=== PATIENT | female | born 1980 | race Two or more races ===

== ENCOUNTER 2018-04-05 18:02 | Emergency (ER) | payer SELFPAY ==
--- NOTE | 2018-04-05 18:41 | ER Document Report ---
ED Medical Screen (RME) - General Stated Complaint: ABDOMINAL PAIN Time Seen by Provider: 04/05/18 18:33 Notes: 38-year-old female who speaks some Israeli. 2-month history of right lower quadrant dull aching, is become sharp now for 3-4 days. Pain comes and goes. There is an occasional small amount of clear vaginal discharge. There is no bleeding. She has missed at least one and possibly 2 periods. I have greeted and performed a rapid initial assessment of this patient. A comprehensive ED assessment and evaluation of the patient, analysis of test results and completion of the medical decision making process will be conducted by additional ED providers. TRAVEL OUTSIDE OF THE [place] IN LAST 30 DAYS: No - Related Data Allergies/Adverse Reactions: No Known Allergies Allergy (Unverified 04/05/18 18:04) Past Medical History - Social History Chew tobacco use (# tins/day): No Frequency of alcohol use: None Drug Abuse: None Renal/ Medical History: Denies: Hx Peritoneal Dialysis Physical Exam - Vital signs Vitals: Temp Pulse Resp BP Pulse Ox 98.5 F 88 16 136/90 H 99 04/05/18 18:15 04/05/18 18:15 04/05/18 18:15 04/05/18 18:15 04/05/18 18:15 Course - Vital Signs Vital signs: Temp Pulse Resp BP Pulse Ox 98.5 F 88 16 136/90 H 99 04/05/18 18:15 04/05/18 18:15 04/05/18 18:15 04/05/18 18:15 04/05/18 18:15
[2018-04-05 19:34] LABS: ABSOLUTE BASOPHILS # (AUTO) 0.1 10^3/uL (0.0-0.2); ABSOLUTE EOSINOPHILS # (AUTO) 0.4 10^3/uL (0.0-0.6); ABSOLUTE LYMPHOCYTES (AUTO) 3.7 10^3/uL (0.5-4.7); ABSOLUTE MONOCYTES (AUTO) 0.6 10^3/uL (0.1-1.4); ABSOLUTE NEUT (AUTO) 4.3 10^3/uL (1.7-8.2); BASOPHILS % (AUTO) 0.6 % (0-2); EOSINOPHILS % (AUTO) 4.6 % (0-6); HEMATOCRIT 37.7 % (36.0-47.0); HEMOGLOBIN 13.2 g/dL (12.0-15.5); LYMPHOCYTES % (AUTO) 40.8 % (13-45); MEAN CORPUSCULAR HGB CONC 35.1 g/dL (32.0-36.0); MEAN CORPUSCULAR VOLUME 85 fl (80-97); PLATELET COUNT 348 10^3/uL (150-450); RED BLOOD COUNT 4.41 10^6/uL (3.72-5.28); RED CELL DISTRIBUTION WIDTH 13.8 % (11.5-14.0); TOTAL CELLS COUNTED % (AUTO) 100 %; WHITE BLOOD COUNT 9.1 10^3/uL (4.0-10.5)
[2018-04-05 19:52] LABS: APPEARANCE,URINE SLIGHTLY-CLOUDY; BILIRUBIN,URINE NEGATIVE (NEGATIVE); COLOR,URINE YELLOW; GLUCOSE, URINE NEGATIVE (NEGATIVE); KETONES,URINE NEGATIVE (NEGATIVE); LEUKOCYTE ESTERASE,URINE MODERATE (NEGATIVE); NITRITE,URINE NEGATIVE (NEGATIVE); PROTEIN,URINE NEGATIVE (NEGATIVE); URINE SPECIFIC GRAVITY 1.019
[2018-04-05 19:56] LABS: ALANINE AMINOTRANSFERASE 29 U/L (9-52); ALBUMIN 4.2 g/dL (3.5-5.0); ALKALINE PHOSPHATASE 90 U/L (38-126); ANION GAP 7 (5-19); ASPARTATE AMINO TRANSFERASE 22 U/L (14-36); BILIRUBIN,DIRECT 0.3 mg/dL (0.0-0.4); BILIRUBIN,TOTAL 0.3 mg/dL (0.2-1.3); BLOOD UREA NITROGEN 11 mg/dL (7-20); CALCIUM 9.5 mg/dL (8.4-10.2); CARBON DIOXIDE 28 mmol/L (22-30); CHLORIDE 105 mmol/L (98-107); GLUCOSE 93 mg/dL (75-110); POTASSIUM 4.4 mmol/L (3.6-5.0); SODIUM 140.2 mmol/L (137-145); TOTAL PROTEIN 7.5 g/dL (6.3-8.2)
--- NOTE | 2018-04-05 20:46 | RADIOLOGY REPORT (SQ) ---
EXAM DESCRIPTION: U/S NON-OB PELVIS W/O DOP COMPLETED DATE/TIME: 04/05/2018 8:26 pm REASON FOR STUDY: Right pelvic pain,possibly COMPARISON: None. TECHNIQUE: Dynamic and static grayscale images acquired of the pelvis via transabdominal approach an d recorded on PACS. Additional selected color Doppler and spectral images recorded. LIMITATIONS: None. FINDINGS: UTERUS: Contour normal. No mass. ENDOMETRIAL STRIPE: No focal or generalized thickening. No masses. CERVIX: Poorly seen. RIGHT OVARY AND DOPPLER: Normal size. No worrisome masses. Normal arterial vascular flow without evid ence for torsion. 2.6 x 2.8 x 2.4 cm cyst. LEFT OVARY AND DOPPLER: Normal size. No worrisome masses. Normal arterial vascular flow without evide nce for torsion. FREE FLUID: None noted. OTHER: No other significant finding. MEASUREMENTS: UTERUS: 8.8 x 4.5 x 4.4 cm. ENDOMETRIAL STRIPE: 4 mm. RIGHT OVARY: 4.5 x 3.7 x 3.1 cm. LEFT OVARY: 2.4 x 2.2 x 1.6 cm. IMPRESSION: NORMAL PELVIC ULTRASOUND BY TRANSABDOMINAL TECHNIQUE. TECHNICAL DOCUMENTATION: JOB ID: [id number] [employer]- All Rights Reserved Rev Reading location - IP/workstation name: [email or web address]
[2018-04-05] MEDS ORDERED: KETOROLAC TROMETHAMINE 60 MG/2 ML SDV IM ONE (21:16)
--- NOTE | 2018-04-05 21:20 | ER Document Report ---
ED GI/ - General Chief Complaint: Abdominal Pain Stated Complaint: ABDOMINAL PAIN Time Seen by Provider: 04/05/18 18:33 Mode of Arrival: Ambulatory Information source: Patient Notes: Patient is a 38-year-old female comes to emergency room complaining of right lower pelvic pain. She states that it started approximately 4 days ago she ran a low-grade fever. She denies any nausea vomiting or diarrhea. She denies any dysuria. She denies any other medical problems. She states she was sent here by a friend because she thought she might be be having a ectopic . Patient currently is not employed and she does not smoke. TRAVEL OUTSIDE OF THE [place] IN LAST 30 DAYS: No - HPI Patient complains to provider of: Abdominal pain, Pelvic pain Onset: Other - 4 days Timing/Duration: Gradual, Persistent Quality of pain: Achy Severity at maximum: Moderate Severity in ED: Moderate Pain Level: 3 Context: denies: Bad food, Lifting, Out of the country travel, Recent trauma Location: RLQ, Pelvis Adult Front & Back Diagram: 1 - Area of discomfort and pain is more lateral and it is definitely not near the umbilicus. Vaginal bleeding (Compared to normal period): None Menstrual period history: denies: Abnormal, Missed LMP: A month ago Sexual history: Active Associated symptoms: None. denies: Vaginal discharge Exacerbated by: Denies Relieved by: Denies Similar symptoms previously: No Recently seen / treated by doctor: No - Related Data Allergies/Adverse Reactions: No Known Allergies Allergy (Unverified 04/05/18 18:04) Past Medical History - General Information source: Patient - Social History Smoking Status: Never Smoker Cigarette use (# per day): No Chew tobacco use (# tins/day): No Smoking Education Provided: No Frequency of alcohol use: None Drug Abuse: None Occupation: Currently not employed Lives with: Family Family History: Reviewed & Not Pertinent Patient has suicidal ideation: No Patient has homicidal ideation: No Renal/ Medical History: Denies: Hx Peritoneal Dialysis Review of Systems - Review of Systems Constitutional: No symptoms reported EENT: No symptoms reported Cardiovascular: No symptoms reported Respiratory: No symptoms reported Gastrointestinal: Abdominal pain Genitourinary: No symptoms reported Female Genitourinary: See HPI. denies: Painful intercourse Musculoskeletal: No symptoms reported Skin: No symptoms reported Hematologic/Lymphatic: No symptoms reported Neurological/Psychological: No symptoms reported -: Yes All other systems reviewed and negative Physical Exam - Vital signs Vitals: Temp Pulse Resp BP Pulse Ox 98.5 F 88 16 136/90 H 99 04/05/18 18:15 04/05/18 18:15 04/05/18 18:15 04/05/18 18:15 04/05/18 18:15 Interpretation: Hypertensive - Notes Notes: Patient is a well-nourished well-developed female no apparent distress. She actually looks comfortable. - General General appearance: Alert - HEENT Head: Normocephalic, Atraumatic Eyes: Normal Mouth/Lips: Normal. No: Caries, Dental fracture Mucous membranes: Normal, Moist Pharynx: Normal. No: Blood in hypopharynx, Erythema, Exudate, Peritonsillar abscess, Post nasal drainage, Retropharyngeal abscess, Tonsillar hypertrophy, Uvular edema, Potential airway comprom. Neck: Normal, Supple. No: Anterior cervical chain, Posterior cervical chain, Brudzinski, Carotid bruit, Kernig's, Lymphadenopathy, Meningismus, Neck mass, Shotty nodes, Subcutaneous emphysema, Thyroid nodule - Respiratory Respiratory status: No respiratory distress Chest status: Nontender Breath sounds: Normal. No: Rales, Rhonchi, Stridor, Wheezing Chest palpation: Normal - Cardiovascular Rhythm: Regular Heart sounds: Normal auscultation Murmur: No Pulses: Bounding: Brachial, Femoral - Abdominal Inspection: Normal Distension: No distension Bowel sounds: Normal Tenderness: Nontender, Other - Physical examination of patient's abdomen as well as her pelvic area shows that she has nonspecific tenderness. She is more tender on the right lateral side than she is right lower quadrant. Does not appear to be a presentation of appendicitis and ultrasound shows normal adnexa so I doubt seriously there is any potential for like a ovarian cyst. At this time is more lateral and inferior so is more in the groin areas of really believe this to be muscle that is affecting her movement.. No: McBurney's point , Romero's sign, Guarding, Rebound Organomegaly: No organomegaly - Back Back: Normal, Nontender. No: Tender, Deformity/step-off, CVA tenderness, Vertebra tenderness, Scoliosis, Wounds - Extremities General upper extremity: Normal inspection, Nontender, Normal ROM, Normal strength General lower extremity: Tender, Normal strength, Normal weight bearing, Other - Examination of patient's right groin area shows that she is more superior to the groin but inferior to the abdominal area. It is more like a hip flexor type presentation that she is pulled.. No: Normal inspection, Normal ROM, Valentine 's sign - Neurological Neuro grossly intact: Yes Cognition: Normal Orientation: AAOx4 [place] Coma Scale Eye Opening: Spontaneous [place] Coma Scale Verbal: Oriented [place] Coma Scale Motor: Obeys Commands [place] Coma Scale Total: 15 Speech: Normal - Skin Skin Temperature: Warm Skin Moisture: Dry Skin Color: Normal, [place] Course - Re-evaluation Re-evalutation: 04/06/18 01:55 Patient spoke relatively good Mexican we were able to communicate without a problem. Physical exam was really unremarkable for any kind of acute findings. Her pain seem to be stemming from her right lower abdominal area but more superior to the groin. It appears to be that it may be a muscle pull more than anything else. At this time we are having the patient go home and of asked her to return to ER and ask for me if there are any concerns or problems that way we know which direction to go in if the if she were to come back. Currently as stated there is no concerned that this is an appendix kind of a presentation patient's labs look good her ultrasound was done and it was negative. - Vital Signs Vital signs: Temp Pulse Resp BP Pulse Ox 97.9 F 88 14 127/90 H 98 04/05/18 21:32 04/05/18 21:32 04/05/18 21:32 04/05/18 21:32 04/05/18 21:32 - Laboratory Result Diagrams: 04/05/18 19:15 04/05/18 19:15 Laboratory results interpreted by me: 04/05/18 19:15 Urine Urobilinogen 2.0 H Ur Leukocyte Esterase MODERATE H Discharge - Discharge Clinical Impression: Pelvic pain Condition: Stable Disposition: HOME, SELF-CARE Instructions: Abdominal Pain ([facility]), Pelvic Pain ([facility]) Additional Instructions: Home and rest. As we discussed the ultrasound was negative your labs were normal and your urine is clean. At this point there is nothing really to treat with the exception of muscle type of pain. Since you have had no elevation in your white count and everything else is normal where he would like to go home. 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 It does not appear to be anything life-threatening however if you should spike a fever if you should have uncontrolled vomiting or the pain is unrelenting return to ER for recheck. Prescriptions: Hyoscyamine Sulfate [Levsin 0.125 Tablet] 0.125 mg PO QID #20 tablet Forms: Elevated Blood Pressure
[2018-04-05 21:35] VITALS: BP 127/90
== END 2018-04-05 21:42 | disposition home or self-care (01) ==
LOC: ER 18:02
DX: R10.2 Pelvic and perineal pain (principal); R10.31 Right lower quadrant pain
CPT/HCPCS: 99284; 36415; 84702; 85025; 80053; 81001; 76856; J1885

== ENCOUNTER → 2018-06-11 | Outpatient (CLI) | payer SELFPAY ==
--- NOTE | 2018-06-11 16:20 | RADIOLOGY REPORT (SQ) ---
EXAM DESCRIPTION: U/S [id number] TRNABD 1GES W/ODOP COMPLETED DATE/TIME: 06/11/2018 4:04 pm REASON FOR STUDY: ENCOUNTER FOR SUPERVISION OF OTHER NORMAL , FIRST TRIMESTER Z34.81 ENCOU NTER FOR SUPRVSN OF NORMAL , FIRST TRIM COMPARISON: None. TECHNIQUE: Transabdominal static and realtime grayscale images acquired of the pelvis. Additional se lected spectral and color Doppler images recorded. All images stored on PACs. bHCG: Not available. CLINICAL DATES: 9 weeks 1 day LIMITATIONS: None. FINDINGS: FETUS: Single Living intrauterine . ULTRASOUND EGA: 9 weeks 0 days ULTRASOUND FARZAD: 01/14/2019 EFW: Not applicable less than 20 weeks. CRL: 2.3 cm FHR: 180 beats per minute. SURVEY: No visualized anomalies. AMNIOTIC FLUID: Adequate amount. PLACENTA: Not yet developed due to early gestation. SUBCHORIONIC BLEED: No SIZE OF BLEED: Not applicable. UTERUS: No masses. No anomalies. CERVICAL LENGTH: 2.9 cm Closed. RIGHT ADNEXA: Normal ovary with normal vascular flow. No adnexal free fluid. No adnexal masses. LEFT ADNEXA: Normal ovary with normal vascular flow. No adnexal free fluid. No adnexal masses. FREE FLUID: None. OTHER: No other significant finding. IMPRESSION: LIVING INTRAUTERINE . EGA 9 weeks 0 days Trimester of : First - 0 to 13 weeks. TECHNICAL DOCUMENTATION: JOB ID: [id number] [employer]- All Rights Reserved rev Reading location - IP/workstation name: [email or web address]
== END ==
LOC: RAD 15:03
PROVIDERS: ATTEND Nurse Practitioner
DX: Z34.81 Encounter for supervision of other normal pregnancy, first trimester (principal)
CPT/HCPCS: 76801

== ENCOUNTER 2018-07-09 11:09 | Emergency (ER) | payer SELFPAY ==
--- NOTE | 2018-07-09 13:33 | ER Document Report ---
ED Respiratory Problem - General Chief Complaint: Cold Symptoms Stated Complaint: FEVER, HEADACHE, WEAKNESS Time Seen by Provider: 07/09/18 13:09 Mode of Arrival: Ambulatory Information source: Patient Notes: 38-year-old female presents to ED for complaint of cough cold congestion runny nose and fever. She is with estimated due date of 01/14/2019. She is complaining of right pelvic pain no bleeding. She is alert oriented respirations regular and unlabored speaking in full sentences. She states she has been to the doctor on 19 June last. She has a cough and cold at this t andrew. TRAVEL OUTSIDE OF THE [place] IN LAST 30 DAYS: No - HPI Patient complains to provider of: Cough Onset: Other Duration: Continuous Initiating Event: URI - [id number] Quality of pain: Achy Cough: Nonproductive Associated symptoms: Congestion, Cough, PND, Runny nose, Sinus pain/pressure, Short of breath, Other - Patient states she is also and has some discomfort at times when she is coughing. She states she has been to see her NEWSPAPER WRITER and has had an ultrasound.. denies: Fever Similar symptoms previously: Yes Recently seen / treated by doctor: No - Related Data Allergies/Adverse Reactions: No Known Allergies Allergy (Verified 07/09/18 11:21) Past Medical History - General Information source: Patient - Social History Smoking Status: Never Smoker Frequency of alcohol use: Rare Drug Abuse: None Lives with: Family Family History: Reviewed & Not Pertinent Patient has suicidal ideation: No Patient has homicidal ideation: No - Past Medical History Cardiac Medical History: Reports: None Pulmonary Medical History: Reports: None EENT Medical History: Reports: None Neurological Medical History: Reports: None Endocrine Medical History: Reports: None Renal/ Medical History: Reports: None Malignancy Medical History: Reports: None GI Medical History: Reports: None Musculoskeletal Medical History: Reports None Skin Medical History: Reports None Psychiatric Medical History: Reports: None Traumatic Medical History: Reports: None Infectious Medical History: Reports: None Surgical Hx: Negative Past Surgical History: Reports: None - Immunizations Immunizations up to date: Yes Review of Systems - Review of Systems Constitutional: No symptoms reported EENT: Nose discharge, Sinus pressure, Sinus discharge, Throat pain Cardiovascular: No symptoms reported Respiratory: Cough Gastrointestinal: No symptoms reported Genitourinary: No symptoms reported Female Genitourinary: Musculoskeletal: No symptoms reported Skin: No symptoms reported Hematologic/Lymphatic: No symptoms reported Neurological/Psychological: No symptoms reported -: Yes All other systems reviewed and negative Physical Exam - Vital signs Vitals: Temp Pulse Resp BP Pulse Ox 98.4 F 98 18 126/84 H 98 07/09/18 11:26 07/09/18 11:26 07/09/18 11:26 07/09/18 11:26 07/09/18 11:26 Interpretation: Normal - General General appearance: Appears well, Alert - HEENT Head: Normocephalic, Atraumatic Eyes: Normal Pupils: PERRL Ears: Normal External canal: Normal Tympanic membrane: Normal Sinus: Normal Nasal: Purulent discharge, Swelling Mouth/Lips: Normal Mucous membranes: Normal Pharynx: Post nasal drainage Neck: Normal - Respiratory Respiratory status: No respiratory distress Chest status: Nontender Breath sounds: Normal Chest palpation: Normal - Cardiovascular Rhythm: Regular Heart sounds: Normal auscultation Murmur: No - Abdominal Inspection: Gravid female Distension: No distension Bowel sounds: Normal Tenderness: Nontender Organomegaly: No organomegaly - Back Back: Normal, Nontender - Extremities General upper extremity: Normal inspection, Nontender, Normal color, Normal ROM, Normal temperature General lower extremity: Normal inspection, Nontender, Normal color, Normal ROM, Normal temperature, Normal weight bearing. No: Valentine's sign - Neurological Neuro grossly intact: Yes Cognition: Normal Orientation: AAOx4 [place] Coma Scale Eye Opening: Spontaneous [place] Coma Scale Verbal: Oriented [place] Coma Scale Motor: Obeys Commands [place] Coma Scale Total: 15 Speech: Normal Motor strength normal: LUE, RUE, LLE, RLE Sensory: Normal - Psychological Associated symptoms: Normal affect, Normal mood - Skin Skin Temperature: Warm Skin Moisture: Dry Skin Color: Normal Course - Vital Signs Vital signs: Temp Pulse Resp BP Pulse Ox 98.3 F 101 H 20 124/78 96 07/09/18 14:50 07/09/18 14:50 07/09/18 14:50 07/09/18 14:50 07/09/18 14:50 Discharge - Discharge Clinical Impression: URI (upper respiratory infection) Qualifiers: URI type: unspecified URI Qualified Code(s): J06.9 - Acute upper respiratory infection, unspecified Condition: Good Disposition: HOME, SELF-CARE Instructions: [facility] [place] Additional Instructions: UPPER RESPIRATORY ILLNESS: You have a viral infection of the respiratory passages -- a "cold." This common infection causes nasal congestion, drainage, and often sore throat and cough. It is highly contagious. The disease usually lasts about 10 to 14 days. There is no "cure" for the viral infection -- it must run its course. If there is a complication, such as bacterial infection in the nose, sinuses, middle ear, or bronchial tubes, antibiotics may be required. The antibiotics won't affect the virus. Drink plenty of fluids. A humidifier may help. An expectorant medication or decongestant may make you more comfortable. Use acetaminophen or ibuprofen for fever or aches. See the doctor if fever persists over two days, if there is any significant worsening of your symptoms, or if you simply fail to improve as expected. COUGH-SUPPRESSANT & EXPECTORANT MEDICATION: You are to use a cough medication as needed for relief of symptoms. This medicine is a combination of an expectorant (to make the mucous thinner and more easily "coughed up") and a cough suppressant (to reduce the frequency of coughing). The cough-suppressant medicine is related to narcotics. You may experience mild nausea and sleepiness. Some patients who are very sensitive to narcotics may have stomach pain from this medicine. Taking the medicine with food reduces these side effects. Do not drive or work with machinery until you know how this medicine affects you. The expectorant should have no side effects. Iodine-containing expectorants (such as organidin) should not be taken by persons with active thyroid disease unless approved by your doctor. Call the doctor if you develop shortness of breath, hives, rash, itching, lightheadedness, or severe nausea and vomiting. USE OF ACETAMINOPHEN (Tylenol): Acetaminophen may be taken for pain relief or fever control. It's much safer than aspirin, offering a wider range of "safe" dosages. It is safe during . Some brand names are Tylenol, Panadol, Datril, Anacin 3, Tempra, and Liquiprin. Acetaminophen can be repeated every four hours. The following are maximum recommended dosages: >89 pounds or adults 650 mg to 900 mg Acetaminophen can be repeated every four hours. Maximum dose not to exceed 4000 mg a day. You can use Claritin or Benadryl for your cough cold and congestion while you are . The other, [id number] medications you cannot take while . Please use salt and soda solution gargles to help with the cough as most your cough is from the postnasal drip. Follow-up with your primary care doctor and your NEWSPAPER WRITER for your cough cold and congestion. You will need to follow-up with your primary doctor and orthopedics after you have delivered for this pain that you have had in your knee for 2 months. This is not an acute injury and I do not want to x-ray a woman when she is and it is not an acute injury. FOLLOW-UP CARE: If you have been referred to a physician for follow-up care, call the physicians office for an appointment as you were instructed or within the next two days. If you experience worsening or a significant change in your symptoms, notify the physician immediately or return to the Emergency Department at any time for re-evaluation. Referrals: ARIELA KRAMER, [place] [NO LOCAL MD] - Follow up as needed [facility] [Provider Group] - Follow up as needed [facility] [Provider Group] - Follow up as needed
[2018-07-09 13:41] LABS: A TYPE INFLUENZA AG NEGATIVE (NEGATIVE); B INFLUENZA AG NEGATIVE (NEGATIVE)
[2018-07-09] MEDS ORDERED: LORATADINE 10 MG TABLET PO ONE (14:29)
[2018-07-09] MEDS ORDERED: ACETAMINOPHEN 325 MG TABLET PO ONE (14:32)
[2018-07-09 14:56] VITALS: BP 124/78
== END 2018-07-09 14:50 | disposition home or self-care (01) ==
LOC: ER 11:09
DX: O99.519 Diseases of the respiratory system complicating pregnancy, unspecified trimester (principal); J06.9 Acute upper respiratory infection, unspecified; J34.89 Other specified disorders of nose and nasal sinuses; O26.899 Other specified pregnancy related conditions, unspecified trimester; R05 Cough; R09.89 Other specified symptoms and signs involving the circulatory and respiratory systems; R50.9 Fever, unspecified; R10.2 Pelvic and perineal pain; R09.82 Postnasal drip; R06.02 Shortness of breath; Z3A.00 Weeks of gestation of pregnancy not specified
CPT/HCPCS: 87804; 99283

== ENCOUNTER 2018-12-05 12:40 | Outpatient (CLI) | payer SELFPAY ==
--- NOTE | 2018-12-05 13:47 | Non Stress Test Report ---
Non Stress Test Datetime Report Generated by CPN: 12/05/2018 13:47 DEMOGRAPHIC EGA NST: 34.3 INDICATION Indication for Study: Ordered by Provider VITAL SIGNS Temperature - NST: 98.7 RESP - NST: 12 NBPSYS NST: 115 NBPDIA NST: 73 MONITORING Monitor Explained: Monitor Explained; Test Explained Time on Monitor: 12/05/2018 13:15 Time off Monitor: 12/05/2018 13:38 NST Duration: 23 NST INTERVENTIONS NST Interventions: PO Hydration Physician Notified NST: C. Kiser CNM BABY A: [id number] BABY A Movement : Present Contraction Frequency : x2 FHR Baseline : 150 Accelerations : 15X15 Decelerations : None Variability : Moderate 6-25bpm NST Review: Meets Criteria for Reactive NST NST Review and Verified By : Debby Galindo RN NST Results: Reactive NST REPORT Report Trigger: Send Report
--- NOTE | 2018-12-05 16:06 | RADIOLOGY REPORT (SQ) ---
EXAM DESCRIPTION: U/S OB LIMITED COMPLETED DATE/TIME: 12/05/2018 3:11 pm REASON FOR STUDY: AMA needs AMBROSE only COMPARISON: 08/27/2018 TECHNIQUE: Limited transabdominal grayscale ultrasound for evaluation of specific requested obstetri meño parameters. LIMITATIONS: None. FINDINGS: CERVICAL LENGTH: 3.1 cm. Closed. AMBROSE: 15.7 cm. FHR: 162 beats per minute. PRESENTATION: Cephalic. PLACENTA: Posterior. ANATOMY: Not assessed OTHER: Gestation of 36 weeks 6 days by ultrasound. IMPRESSION: LIMITED OBSTETRICAL ULTRASOUND WITH MEASURED PARAMETERS DELINEATED ABOVE. Trimester of : Third trimester - 28 weeks to delivery. TECHNICAL DOCUMENTATION: JOB ID: [id number] [employer]- All Rights Reserved Reading location - IP/workstation name: [email or web address]
== END 2018-12-05 15:01 | disposition home or self-care (01) ==
LOC: LC 12:40
PROVIDERS: ATTEND Obstetrics & Gynecology
PROC: 4A1HXCZ Monitoring of Products of Conception, Cardiac Rate, External Approach (ICD-10-PCS; principal; 2018-12-05)
DX: Z34.83 Encounter for supervision of other normal pregnancy, third trimester (principal); Z3A.34 34 weeks gestation of pregnancy
CPT/HCPCS: 59025; 76815; 94760

== ENCOUNTER 2018-12-07 11:08 | Outpatient (CLI) | payer SELFPAY ==
--- NOTE | 2018-12-07 12:17 | Non Stress Test Report ---
Non Stress Test Datetime Report Generated by CPN: 12/07/2018 11:58 DEMOGRAPHIC EGA NST: 34.5 INDICATION Indication for Study: Other Indication for Study (NST) Other: pt sent from health dept for testing, advanced maternal age MONITORING Monitor Explained: Monitor Explained; Test Explained; Patient Verbalized Understanding Time on Monitor: 12/07/2018 11:16 Time off Monitor: 12/07/2018 11:51 NST Duration: 35 NST INTERVENTIONS NST Interventions: PO Hydration; Reposition Patient Physician Notified NST: Dr Álvaro BABY A: [id number] BABY A Movement : Present Contraction Frequency : occasional FHR Baseline : 160 Accelerations : 15X15 Decelerations : None Variability : Moderate 6-25bpm NST Review: Meets Criteria for Reactive NST NST Review and Verified By : Debby Galindo RN NST Results: Reactive NST REPORT Report Trigger: Send Report
== END 2018-12-07 11:53 | disposition home or self-care (01) ==
LOC: LC 11:08
PROVIDERS: ATTEND Obstetrics & Gynecology
PROC: 4A1HXCZ Monitoring of Products of Conception, Cardiac Rate, External Approach (ICD-10-PCS; principal; 2018-12-07)
DX: O09.523 Supervision of elderly multigravida, third trimester (principal); Z3A.34 34 weeks gestation of pregnancy
CPT/HCPCS: 59025

== ENCOUNTER 2018-12-11 13:32 | Outpatient (CLI) | payer SELFPAY ==
--- NOTE | 2018-12-11 14:37 | Non Stress Test Report ---
Non Stress Test Datetime Report Generated by CPN: 12/11/2018 14:37 DEMOGRAPHIC EGA NST: 35.2 INDICATION Indication for Study: Ordered by Provider Indication for Study (NST) Other: AMA VITAL SIGNS Temperature - NST: 97.8 Pulse - NST: 106 RESP - NST: 18 NBPSYS NST: 104 NBPDIA NST: 58 MONITORING Monitor Explained: Monitor Explained; Test Explained; Patient Verbalized Understanding Time on Monitor: 12/11/2018 13:44 Time off Monitor: 12/11/2018 14:29 NST Duration: 45 NST INTERVENTIONS NST Interventions: PO Hydration; Reposition Patient Physician Notified NST: K GANDARA, CNM REVIEWED STRIP BABY A Movement : Present Contraction Frequency : NONE FHR Baseline : 160 Accelerations : 15X15 Decelerations : None Variability : Moderate 6-25bpm NST Review: Meets Criteria for Reactive NST NST Review and Verified By : AMBER Pack NST Results: Reactive NST REPORT Report Trigger: Send Report
== END 2018-12-11 14:49 | disposition home or self-care (01) ==
LOC: LC 13:32
PROVIDERS: ATTEND Student in an Organized Health Care Education/Training Program
PROC: 4A1HXCZ Monitoring of Products of Conception, Cardiac Rate, External Approach (ICD-10-PCS; principal; 2018-12-11)
DX: O09.523 Supervision of elderly multigravida, third trimester (principal); Z3A.35 35 weeks gestation of pregnancy
CPT/HCPCS: 59025

== ENCOUNTER 2018-12-14 15:22 | Outpatient (CLI) | payer SELFPAY ==
--- NOTE | 2018-12-14 17:11 | Non Stress Test Report ---
Non Stress Test Datetime Report Generated by CPN: 12/14/2018 17:10 DEMOGRAPHIC EGA NST: 35.5 INDICATION Indication for Study: Other Indication for Study (NST) Other: AMA VITAL SIGNS Temperature - NST: 98.0 Pulse - NST: 101 RESP - NST: 16 NBPSYS NST: 111 NBPDIA NST: 59 MONITORING Monitor Explained: Monitor Explained; Test Explained; Patient Verbalized Understanding; Other Time on Monitor: 12/14/2018 15:31 Time off Monitor: 12/14/2018 16:24 NST Duration: 53 NST INTERVENTIONS NST Interventions: PO Hydration Physician Notified NST: A. Heard, CNM BABY A: [id number] BABY A Movement : Present Contraction Frequency : 1-3 FHR Baseline : 150 Accelerations : 15X15 Decelerations : None Variability : Moderate 6-25bpm NST Review: Meets Criteria for Reactive NST NST Review and Verified By : AMBER PackT Results: Reactive NST REPORT Report Trigger: Send Report
--- NOTE | 2018-12-14 17:11 | RADIOLOGY REPORT (SQ) ---
EXAM DESCRIPTION: U/S OB LIMITED COMPLETED DATE/TIME: 12/14/2018 5:00 pm REASON FOR STUDY: AMBROSE COMPARISON: 12/05/2018 TECHNIQUE: Limited transabdominal grayscale ultrasound for evaluation of specific requested obstetri meño parameters. LIMITATIONS: None. FINDINGS: CERVICAL LENGTH: Cervical length was not obtained due to baby positioning/shadowing. AMBROSE: 22.2 cm cm. FHR: 160 beats per minute. PRESENTATION: Cephalic. PLACENTA: Posterior placenta. ANATOMY: Not assessed OTHER: Estimated gestational: 37 weeks 6 days. IMPRESSION: LIMITED OBSTETRICAL ULTRASOUND WITH MEASURED PARAMETERS DELINEATED ABOVE. Trimester of : Third trimester - 28 weeks to delivery. TECHNICAL DOCUMENTATION: JOB ID: [id number] [employer]- All Rights Reserved Reading location - IP/workstation name: [email or web address]
== END 2018-12-14 17:00 | disposition home or self-care (01) ==
LOC: LC 15:22
PROVIDERS: ATTEND Student in an Organized Health Care Education/Training Program
PROC: 4A1HXCZ Monitoring of Products of Conception, Cardiac Rate, External Approach (ICD-10-PCS; principal; 2018-12-14)
DX: O09.523 Supervision of elderly multigravida, third trimester (principal); Z3A.35 35 weeks gestation of pregnancy
CPT/HCPCS: 59025; 76815

== ENCOUNTER → 2018-12-17 | Outpatient (CLI) | payer SELFPAY ==
--- NOTE | 2018-12-17 16:43 | RADIOLOGY REPORT (SQ) ---
EXAM DESCRIPTION: U/S OB 14+ TRNABD 1GES W/O DOP COMPLETED DATE/TIME: 12/17/2018 2:39 pm REASON FOR STUDY: Z34.83 ENCOUNTER FOR SUPRVSN OF NORMAL , THIRD TRIMESTER Z34.83 ENCOUNTE R FOR SUPRVSN OF NORMAL , THIRD TRIM COMPARISON: 12/14/2018 TECHNIQUE: Limited transabdominal grayscale ultrasound for evaluation of specific requested obstetri meño parameters. LIMITATIONS: None. FINDINGS: CERVICAL LENGTH: 3.8 cm Closed. AMBROSE: 17.1 cm. FHR: 175 beats per minute. PRESENTATION: Cephalic. PLACENTA: Posterior. ANATOMY: Not assessed OTHER: Estimated body weight is 3546 +/- 525 g, 92nd percentile. 38 weeks 4 days gestational a ge. IMPRESSION: LIMITED OBSTETRICAL ULTRASOUND WITH MEASURED PARAMETERS DELINEATED ABOVE. Trimester of : Third trimester - 28 weeks to delivery. TECHNICAL DOCUMENTATION: JOB ID: [id number] [employer]- All Rights Reserved Reading location - IP/workstation name: [email or web address]
== END ==
LOC: RAD 12:44
PROVIDERS: ATTEND Midwife
DX: Z34.83 Encounter for supervision of other normal pregnancy, third trimester (principal)
CPT/HCPCS: 76805

== ENCOUNTER 2018-12-21 13:45 | Outpatient (CLI) | payer SELFPAY ==
--- NOTE | 2018-12-21 14:30 | Non Stress Test Report ---
Non Stress Test Datetime Report Generated by CPN: 12/21/2018 14:30 DEMOGRAPHIC EGA NST: 36.5 EGA NST: 35.5 INDICATION Indication for Study: Ordered by Provider Indication for Study (NST) Other: biweekly nst MONITORING Monitor Explained: Monitor Explained; Test Explained; Patient Verbalized Understanding Monitor Explained: Monitor Explained; Test Explained; Patient Verbalized Understanding Time on Monitor: 12/21/2018 13:55 Time on Monitor: 12/14/2018 13:58 Time off Monitor: 12/21/2018 14:17 NST Duration: 83270 NST INTERVENTIONS NST Interventions: PO Hydration NST Interventions: Reposition Patient Physician Notified NST: N Miguel CNM BABY A: [id number] BABY A Movement : Present Contraction Frequency : irregular FHR Baseline : 150 Accelerations : 10X10 Variability : Moderate 6-25bpm NST Review: Meets Criteria for Reactive NST NST Review and Verified By : Anitra Meza [facility] NST Results: Reactive NST REPORT Report Trigger: Send Report
== END 2018-12-21 14:23 | disposition home or self-care (01) ==
LOC: LC 13:45
PROVIDERS: ATTEND Obstetrics & Gynecology
PROC: 4A1HXCZ Monitoring of Products of Conception, Cardiac Rate, External Approach (ICD-10-PCS; principal; 2018-12-21)
DX: Z34.93 Encounter for supervision of normal pregnancy, unspecified, third trimester (principal); Z3A.36 36 weeks gestation of pregnancy
CPT/HCPCS: 59025

== ENCOUNTER 2018-12-26 15:46 | Outpatient (CLI) | payer SELFPAY ==
--- NOTE | 2018-12-26 16:34 | Non Stress Test Report ---
Non Stress Test Datetime Report Generated by CPN: 12/26/2018 16:34 DEMOGRAPHIC EGA NST: 37.3 VITAL SIGNS Temperature - NST: 97.8 Pulse - NST: 109 RESP - NST: 16 NBPSYS NST: 112 NBPDIA NST: 64 MONITORING Monitor Explained: Monitor Explained; Test Explained; Patient Verbalized Understanding Time on Monitor: 12/26/2018 15:55 Time off Monitor: 12/26/2018 16:27 NST Duration: 32 NST INTERVENTIONS NST Interventions: PO Hydration; Reposition Patient Physician Notified NST: N PAUL, CNM REVIEWED STRIP BABY A: [id number] BABY A Movement : Present Contraction Frequency : NONE FHR Baseline : 150 Accelerations : 15X15 Decelerations : None Variability : Moderate 6-25bpm NST Review: Meets Criteria for Reactive NST NST Review and Verified By : AMBER VELASQUEZ Results: Reactive NST REPORT Report Trigger: Send Report
== END 2018-12-26 16:30 | disposition home or self-care (01) ==
LOC: LC 15:46
PROVIDERS: ATTEND Student in an Organized Health Care Education/Training Program
PROC: 4A1HXCZ Monitoring of Products of Conception, Cardiac Rate, External Approach (ICD-10-PCS; principal; 2018-12-26)
DX: Z34.93 Encounter for supervision of normal pregnancy, unspecified, third trimester (principal); Z3A.37 37 weeks gestation of pregnancy
CPT/HCPCS: 59025

== ENCOUNTER 2018-12-28 13:09 | Outpatient (CLI) | payer SELFPAY ==
--- NOTE | 2018-12-28 13:50 | Non Stress Test Report ---
Non Stress Test Datetime Report Generated by CPN: 12/28/2018 13:50 DEMOGRAPHIC EGA NST: 37.5 INDICATION Indication for Study: Ordered by Provider MONITORING Monitor Explained: Monitor Explained; Test Explained; Patient Verbalized Understanding Time on Monitor: 12/28/2018 13:19 Time off Monitor: 12/28/2018 13:44 NST Duration: 25 NST INTERVENTIONS NST Interventions: None Physician Notified NST: J. Retana CNM BABY A: [id number] BABY A Movement : Present Contraction Frequency : 0 FHR Baseline : 150 Accelerations : 15X15 Decelerations : None Variability : Moderate 6-25bpm NST Review: Meets Criteria for Reactive NST NST Review and Verified By : AMBER Pack NST Results: Reactive NST REPORT Report Trigger: Send Report
== END 2018-12-28 13:45 | disposition home or self-care (01) ==
LOC: LC 13:09
PROVIDERS: ATTEND Obstetrics & Gynecology
PROC: 4A1HXCZ Monitoring of Products of Conception, Cardiac Rate, External Approach (ICD-10-PCS; principal; 2018-12-28)
DX: Z34.93 Encounter for supervision of normal pregnancy, unspecified, third trimester (principal); Z3A.37 37 weeks gestation of pregnancy
CPT/HCPCS: 59025

== ENCOUNTER → 2019-01-04 | Outpatient (CLI) | payer SELFPAY ==
--- NOTE | 2019-01-04 14:33 | Non Stress Test Report ---
Non Stress Test Datetime Report Generated by CPN: 01/04/2019 14:33 DEMOGRAPHIC EGA NST: 38.5 INDICATION Indication for Study: Ordered by Provider Indication for Study (NST) Other: scheduled NST from health dept VITAL SIGNS Temperature - NST: 98.0 MONITORING Monitor Explained: Monitor Explained; Test Explained; Patient Verbalized Understanding Time on Monitor: 01/04/2019 12:05 Time off Monitor: 01/04/2019 12:42 NST Duration: 37 NST INTERVENTIONS NST Interventions: PO Hydration Physician Notified NST: K Epstein CNM BABY A: [id number] BABY A Movement : Present Contraction Frequency : irregular FHR Baseline : 145 Accelerations : 15X15 Decelerations : None Variability : Moderate 6-25bpm NST Review: Meets Criteria for Reactive NST NST Review and Verified By : Anitra Meza RNC NST Results: Reactive NST REPORT Report Trigger: Send Report
== END ==
LOC: LC 11:55
PROVIDERS: ATTEND Obstetrics & Gynecology
DX: O36.8330 Maternal care for abnormalities of the fetal heart rate or rhythm, third trimester, not applicable or unspecified (principal); Z3A.38 38 weeks gestation of pregnancy
CPT/HCPCS: 59025

== ENCOUNTER 2019-01-08 06:14 | Inpatient (IN) | payer SELFPAY ==
[2019-01-07 12:07] LABS: ABSOLUTE EOSINOPHILS # (AUTO) 0.2 10^3/uL (0.0-0.6); ABSOLUTE MONOCYTES (AUTO) 0.7 10^3/uL (0.1-1.4); ABSOLUTE NEUT (AUTO) 6.2 10^3/uL (1.7-8.2); BASOPHILS % (AUTO) 0.4 % (0-2); EOSINOPHILS % (AUTO) 2.3 % (0-6); HEMATOCRIT 35.8 % (36.0-47.0); HEMOGLOBIN 12.3 g/dL (12.0-15.5); LYMPHOCYTES % (AUTO) 21.9 % (13-45); MEAN CORPUSCULAR HEMOGLOBIN 30.8 pg (27.0-33.4); MEAN CORPUSCULAR HGB CONC 34.4 g/dL (32.0-36.0); MEAN CORPUSCULAR VOLUME 90 fl (80-97); PLATELET COUNT 245 10^3/uL (150-450); RED BLOOD COUNT 3.99 10^6/uL (3.72-5.28); RED CELL DISTRIBUTION WIDTH 14.3 % (11.5-14.0); SEGMENTED NEUTROPHILS % (AUTO) 67.4 % (42-78); TOTAL CELLS COUNTED % (AUTO) 100 %; WHITE BLOOD COUNT 9.2 10^3/uL (4.0-10.5)
[2019-01-07 12:31] LABS: APPEARANCE,URINE SLIGHTLY HAZY; BILIRUBIN,URINE NEGATIVE (NEGATIVE); COLOR,URINE YELLOW; GLUCOSE, URINE NEGATIVE (NEGATIVE); KETONES,URINE NEGATIVE (NEGATIVE); LEUKOCYTE ESTERASE,URINE NEGATIVE (NEGATIVE); NITRITE,URINE NEGATIVE (NEGATIVE); PROTEIN,URINE NEGATIVE (NEGATIVE); URINE SPECIFIC GRAVITY 1.015
[2019-01-07 12:53] LABS: URINE AMPHETAMINES SCREEN NEGATIVE; URINE BARBITURATES SCREEN NEGATIVE; URINE BENZODIAZEPINES SCREEN NEGATIVE; URINE COCAINE SCREEN NEGATIVE; URINE MARIJUANA (THC) SCREEN NEGATIVE; URINE METHADONE SCREEN NEGATIVE; URINE PHENCYCLIDINE SCREEN NEGATIVE
[2019-01-08] MEDS ORDERED: CEFAZOLIN 2 GM/D5W RTU 2 GM/50 ML RTUPB IV PRN (06:48)
[2019-01-08] MEDS ORDERED: RINGERS SOLUTION,LACTATED 1,500 ML IV ONE (07:30)
[2019-01-08] MEDS ORDERED: PROPOFOL INJ 200 MG/20 ML VIAL IV ONE (09:16)
[2019-01-08] MEDS ORDERED: CEFAZOLIN INJ 1 GM VIAL ONE (09:17)
[2019-01-08] MEDS ORDERED: OXYTOCIN 10 UNIT/ML VIAL ONE (09:17)
[2019-01-08] MEDS ORDERED: EPHEDRINE SULFATE INJ 50 MG/1 ML AMPULE ONE (09:17)
[2019-01-08] MEDS ORDERED: FENTANYL CITRATE INJ/PF 100 MCG/2 ML AMPUL ONE (09:17)
[2019-01-08] MEDS ORDERED: MIDAZOLAM 2 MG/2 ML INJ ONE (09:17)
[2019-01-08] MEDS ORDERED: METHYLERGONOVINE MALEATE INJ/PF 0.2 MG/1 ML AMPULE ONE (09:18)
[2019-01-08] MEDS ORDERED: CITRIC ACID/SODIUM CITRATE ORAL SOLN 15 ML UDCUP ONE ×2 (09:18)
[2019-01-08] MEDS ORDERED: DIPHENHYDRAMINE HCL 50 MG/ML VIAL IV PRN (10:10)
[2019-01-08] MEDS ORDERED: PROMETHAZINE HCL INJ 25 MG/1 ML VIAL IV PRN ×3 (10:10→10:55)
[2019-01-08] MEDS ORDERED: MEPERIDINE HCL/PF INJ 25 MG/1 ML DISP.SYRIN IV PRN (10:10)
[2019-01-08] MEDS ORDERED: FENTANYL CITRATE INJ/PF 100 MCG/2 ML AMPUL IV PRN ×3 (10:10)
[2019-01-08] MEDS ORDERED: RINGERS SOLUTION,LACTATED 1,000 ML IV PRN (10:55)
[2019-01-08] MEDS ORDERED: MEASLES,MUMPS&RUBELLA VACC/PF 0.5 ML VIAL SUBCUT PRN (10:55)
[2019-01-08] MEDS ORDERED: ACETAMINOPHEN 325 MG TABLET PO PRN (10:55)
[2019-01-08] MEDS ORDERED: DIPH/PERTUSS(ACELL)/TETANUS VAC/PF 0.5 ML SYR (>=10YO) IM PRN (10:55)
[2019-01-08] MEDS ORDERED: ACETAMINOPHEN 1,000 MG/100 ML RTUPB IV PRN (10:55)
[2019-01-08] MEDS ORDERED: OXYCODONE-ACETAMINOPHEN 5-325 MG TABLET PO PRN (10:55)
[2019-01-08] MEDS ORDERED: OXYTOCIN/NORMAL SALINE 20 UNIT/1,000 ML RTUINJ IV PRN (10:55)
[2019-01-08] MEDS ORDERED: KETOROLAC TROMETHAMINE INJ/PF 30 MG/1 ML SDV ONE (11:10)
[2019-01-08] MEDS ORDERED: ACETAMINOPHEN 1,000 MG/100 ML RTUPB IV ONE (11:10)
[2019-01-08] MEDS: KETOROLAC TROMETHAMINE INJ/PF 30 MG/1 ML SDV IV SCH ×2 (11:15→17:00)
[2019-01-08] MEDS ORDERED: MORPHINE SULFATE 10 MG/ML INJ ONE (11:26)
[2019-01-08] MEDS: MORPHINE SULFATE 10 MG/ML INJ IV PRN ×2 (11:44→15:36)
--- NOTE | 2019-01-08 12:20 | OPERATIVE REPORT E ---
Operative Report NAME: EDGAR DE DIOS : 1980 AGE: 38Y DATE OF SURGERY: ROOM: 215 PREOPERATIVE DIAGNOSES: 1. INTRAUTERINE (IUP) AT 39 WEEKS AND 1 DAY. 2. PREVIOUS MACROSOMIA DELIVERIES x2. 3. PREVIOUS HISTORY OF A FOURTH DEGREE VAGINAL LACERATION. POSTOPERATIVE DIAGNOSIS: 1. INTRAUTERINE (IUP) AT 39 WEEKS AND 1 DAY. 2. PREVIOUS MACROSOMIA DELIVERIES x2. 3. PREVIOUS HISTORY OF A FOURTH DEGREE VAGINAL LACERATION. SURGEON: DAE CRUZ M.D. ANESTHESIA: Dr. Canas with a spinal. FINDINGS: Male infant, cephalic presentation, with of 8 and 9, weight to be determined. ESTIMATED BLOOD LOSS: 750 mL. SPECIMEN REMOVED: None. PROCEDURE: Low transverse hysterotomy section. PROCEDURE IN DETAIL: The patient was taken to the operating room, prepared and draped in a normal sterile fashion in the supine position with a leftward tilt. A transverse skin incision was made with a scalpel and carried through to the underlying layer of fascia with the same scalpel. The fascia was excised in the midline and extended laterally with blunt dissection. The rectus muscle was then bluntly dissected from the fascia and the rectus muscle was divided. The peritoneal cavity was also entered bluntly with good visualization of the bladder and the uterus. A bladder blade was inserted. The hysterotomy was nicked with a scalpel and extended laterally with insertion finger fracture. The infant was then delivered atraumatically. The nose and mouth were suctioned with a suction bulb and the cord was clamped and cut and the infant was handed off to waiting electroplating technician. Cord blood was collected. Placenta was removed manually. The uterus was exteriorized and cleared of clots and debris. The hysterotomy was closed with 0 Monocryl in a running locked fashion. A second layer of the same suture was used to imbricate to ensure hemostasis. The uterus was returned to the abdomen and the peritoneal cavity was cleared of clots and debris. The rectus muscle and peritoneum were reapproximated with mattress sutures of 2-0 chromic. The fascia was closed with 0 Vicryl. The subcutaneous layer was closed with plain catgut. The skin was closed with 4-0 Vicryl. The patient tolerated the procedure well. Sponge, lap, and needle counts were correct x2. The patient was taken to recovery in stable condition. DICTATING PHYSICIAN: DAE CRUZ M.D. [id number] PHY#: [id number] ID: [id number] JOB#: [id number] ACCT: [id number] cc:DAE CRUZ M.D. >
[2019-01-08] MEDS ORDERED: ONDANSETRON HCL INJ/PF 4 MG/2 ML SDV ONE (12:26)
[2019-01-08] MEDS ORDERED: PHENYLEPHRINE HCL INJ/PF 10 MG/1 ML SDV ONE (12:26)
[2019-01-08] MEDS: OXYCODONE-ACETAMINOPHEN 5-325 MG TABLET PO PRN ×2 (13:09→22:52)
[2019-01-08] MEDS: LACTATED RINGERS 1000 ML IV PRN ×2 (15:41→22:57)
[2019-01-08] MEDS: DOCUSATE SODIUM 100 MG CAPSULE PO SCH (17:00)
[2019-01-09] MEDS: KETOROLAC TROMETHAMINE INJ/PF 30 MG/1 ML SDV IV SCH (00:59)
[2019-01-09] MEDS: SIMETHICONE 80 MG TAB.CHEW PO PRN ×2 (01:01→09:34)
[2019-01-09] MEDS: OXYCODONE-ACETAMINOPHEN 5-325 MG TABLET PO PRN ×3 (04:31→21:06)
[2019-01-09] MEDS ORDERED: NORMAL SALINE 1000 ML (RENAL PATIENTS) IV PRN (05:00)
[2019-01-09] MEDS ORDERED: LIDOCAINE 0.5% INJ-PF (5 MG/ML) 50 ML SDV SUBCUT PRN (05:00)
[2019-01-09 06:49] LABS: HEMATOCRIT 30.4 % (36.0-47.0); HEMOGLOBIN 10.4 g/dL (12.0-15.5); MEAN CORPUSCULAR HEMOGLOBIN 30.9 pg (27.0-33.4); MEAN CORPUSCULAR HGB CONC 34.4 g/dL (32.0-36.0); MEAN CORPUSCULAR VOLUME 90 fl (80-97); PLATELET COUNT 201 10^3/uL (150-450); RED BLOOD COUNT 3.38 10^6/uL (3.72-5.28); RED CELL DISTRIBUTION WIDTH 14.6 % (11.5-14.0)
[2019-01-09] MEDS: IBUPROFEN 800 MG TABLET PO SCH ×3 (08:37→21:06)
[2019-01-09] MEDS: PRENATAL VITAMIN W DHA CAPSULE PO SCH (09:34)
[2019-01-09] MEDS: DOCUSATE SODIUM 100 MG CAPSULE PO SCH ×2 (09:34→17:18)
--- NOTE | 2019-01-09 09:59 | PDOC PROGRESS REPORT ---
Subjective-OB Progress Note for:: 01/09/19 Subjective: Pt doing well, resting in bed with baby. She denies pain, reports regular diet, voiding without difficulty and light bleeding. Physical Exam (OB) Vital Signs: Temp Pulse Resp BP Pulse Ox 97.5 F 88 15 93/66 L 98 01/09/19 07:19 01/09/19 07:19 01/09/19 07:19 01/09/19 07:19 01/09/19 07:19 Intake & Output 01/08/19 01/09/19 01/10/19 06:59 06:59 06:59 Intake Total 2708 Output Total 1005 Balance 1703 Weight 75.296 kg - Dressing Removed: No Incision: Dressing Closure Type: op site - Lochia Lochia Amount: Scant < 10 ml Lochia Color: Rubra/Red - Abdomen Description: Soft, Round Hernia Present: No Fundal Description: Firm, Midline Fundal Height: 1/u - 2/u Objective-Diagnostic Laboratory: 01/09/19 06:09 01/09/19 06:09 WBC 12.0 H RBC 3.38 L Hgb 10.4 L Hct 30.4 L MCV 90 MCH 30.9 MCHC 34.4 RDW 14.6 H Plt Count 201 Assessment and Plan(PN) - Assessment and Plan (1) delivery delivered Is this a current diagnosis for this admission?: Yes - Time Spent with Patient Time with patient: Less than 15 minutes Medications reviewed and adjusted accordingly: Yes - Disposition Anticipated Discharge: Home Within: within 24 hours
[2019-01-10] MEDS: IBUPROFEN 800 MG TABLET PO SCH ×3 (03:32→14:23)
[2019-01-10] MEDS: OXYCODONE-ACETAMINOPHEN 5-325 MG TABLET PO PRN ×3 (03:33→13:45)
[2019-01-10 08:25] VITALS: BP 117/76
[2019-01-10] MEDS: SIMETHICONE 80 MG TAB.CHEW PO PRN (09:07)
--- NOTE | 2019-01-10 09:07 | PDOC PROGRESS REPORT ---
Subjective-OB Progress Note for:: 01/10/19 Subjective: Hesitant about going home later today. Not wanting to ambulate. Physical Exam (OB) Vital Signs: Temp Pulse Resp BP Pulse Ox 97.7 F 85 18 117/76 99 01/10/19 08:23 01/10/19 08:23 01/10/19 08:23 01/10/19 08:23 01/10/19 08:23 Intake & Output 01/09/19 01/10/19 01/11/19 06:59 06:59 06:59 Intake Total 2708 800 Output Total 1005 Balance 1703 800 - PIH/Pre-Eclampsia DTR's: 1 + Clonus: Negative Headache: Absent Epigastric Pain: No Visual Changes: No - Dressing Removed: No - opsite Incision: Dressing Closure Type: op site - Lochia Lochia Amount: Scant < 10 ml Lochia Color: Rubra/Red - Abdomen Description: Tender, Soft Hernia Present: No Bowel Sounds: Normoactive Flatus Presence: Present Stool: Yes Fundal Description: Firm, Midline Fundal Height: u/u - u/2 Objective-Diagnostic Laboratory: 01/09/19 06:09 Assessment and Plan(PN) - Time Spent with Patient Medications reviewed and adjusted accordingly: Yes - Disposition Anticipated Discharge: Home
--- NOTE | 2019-01-10 09:18 | PDOC DISCHARGE SUMMARY ---
Final Diagnosis Discharge Date: 01/10/19 - Final Diagnosis (1) AMA (advanced maternal age) multigravida 35+ Is this a current diagnosis for this admission?: Yes (2) delivery delivered Is this a current diagnosis for this admission?: Yes (3) History of fourth degree perineal laceration Is this a current diagnosis for this admission?: Yes (4) History of macrosomia in in prior , currently Is this a current diagnosis for this admission?: Yes (5) Is this a current diagnosis for this admission?: Yes (6) Insufficient antepartum care Is this a current diagnosis for this admission?: Yes Discharge Data - Discharge Medication Prescriptions: Oxycodone HCl/Acetaminophen [Percocet 5-325 mg Tablet] 1 tab PO Q4HP PRN #20 tablet PRN Reason: Docusate Sodium [Colace 100 mg Capsule] 100 mg PO BID #30 capsule Ibuprofen [Motrin 800 mg Tablet] 800 mg PO Q6A #30 tablet Simethicone [Mylicon 80 mg Chewable Tablet] 80 mg PO QIDP PRN #20 tab.chew PRN Reason: Home Medications: Vit/Dha [ Multi + Dha Capsule] 1 cap PO DAILY 12/05/18 Docusate Sodium [Colace 100 mg Capsule] 100 mg PO BID #30 capsule 01/10/19 Ibuprofen [Motrin 800 mg Tablet] 800 mg PO Q6A #30 tablet 01/10/19 Oxycodone HCl/Acetaminophen [Percocet 5-325 mg Tablet] 1 tab PO Q4HP PRN #20 tablet 01/10/19 Simethicone [Mylicon 80 mg Chewable Tablet] 80 mg PO QIDP PRN #20 tab.chew 01/10/19 Gestational Age: 39.1 wks Reason(s) for Admission: Ceasarean Section-Primary Procedures: Ultrasound Intrapartum Procedure(s): : Low Cervical, Transverse - [place] Data Baby 1 Male at 1 minute: 8 at 5 minutes: 9 Weight: 4.337 kg Home with Mother: Yes Complications: No - Diagnosis Test Laboratory: Temp Pulse Resp BP Pulse Ox 97.7 F 85 18 117/76 99 01/10/19 08:23 01/10/19 08:23 01/10/19 08:23 01/10/19 08:23 01/10/19 08:23 01/07/19 01/07/19 01/09/19 11:15 11:26 06:09 RBC 3.99 3.38 L Hgb 12.3 10.4 L Hct 35.8 L 30.4 L Urine Opiates Screen NEGATIVE - Discharge information/Instructions Discharge Activity: Activity As Tolerated, Balance Activity w/Rest, No Lifting Over 10 Pounds, No Lifting/Push/Pulling, Pelvic Rest, Slowly Increase Activity, No tub bath Discharge Diet: Regular Disposition: HOME, SELF-CARE Follow [facility] with: [facility] in: 1, Weeks
[2019-01-10] MEDS: DOCUSATE SODIUM 100 MG CAPSULE PO SCH (10:59)
[2019-01-10] MEDS: PRENATAL VITAMIN W DHA CAPSULE PO SCH (10:59)
== END 2019-01-10 15:05 | disposition home or self-care (01) | DRG 788 ==
LOC: 2S 06:14
PROVIDERS: ADMIT Obstetrics & Gynecology; ATTEND Obstetrics & Gynecology
PROC: 10D00Z1 Extraction of Products of Conception, Low, Open Approach (ICD-10-PCS; principal; 2019-01-08 09:00)
DX: O36.63X0 Maternal care for excessive fetal growth, third trimester, not applicable or unspecified (principal); Z3A.39 39 weeks gestation of pregnancy; Z37.0 Single live birth
CPT/HCPCS: 36415; 80307; 81001; 85025; 85027; 86850; 86900; 86901; 94799; J0131; J0690; J1885; J2210; J2250; J2270; J2370; J2405; J2590; J2704; J3010; J3490; J7120